=== PATIENT | female | born 1955 | race Caucasian/White ===

== ENCOUNTER → 2017-10-13 | Outpatient (CLI) | payer MEDICARE, OTHER ==
[~2017-10-13] MED LIST: ABAT250V; ALEVE PM CAPLE1 EACH PO; Azor 5-40 MG T1 EACH; COMBIVENT RESPIM4 GM INH; CYAN1000 PO; DULO30 PO; ESTR2; HYDACE7.5; Hydrocodone Bt1 EACH PO; MOMENI; OXYACE5T PO; PANT40 PO; RABE20; VALS80 PO; ZOLP12.5
[2017-10-13 16:31] LABS: BASOPHILS ABSOLUTE AUTO 0.04 K/mm3 (0.00-0.23); BASOPHILS PERCENT AUTO 0 % (0-2); EOSINOPHILS ABSOLUTE AUTO 0.01 K/mm3 (0.00-0.68); EOSINOPHILS PERCENT AUTO 0 % (0-6); Hematocrit 43.4 % (33.0-51.0); Hemoglobin 14.9 g/dL (11.5-16.0); IMMATURE GRAN ABSOLUTE AUTO 0.04 K/mm3 (0.00-0.10); IMMATURE GRAN PERCENT AUTO 0 % (0-1); LYMPHOCYTES ABSOLUTE AUTO 0.74 K/mm3 (0.84-5.20); LYMPHOCYTES PERCENT AUTO 8 % (21-46); MONOCYTES ABSOLUTE AUTO 0.29 K/mm3 (0.16-1.47); MONOCYTES PERCENT AUTO 3 % (4-13); Mean Corpuscular HGB 33.6 pg (26.0-34.0); Mean Corpuscular HGB Conc 34.3 g/dL (31.5-36.5); Mean Corpuscular Volume 98 fL (80-100); Mean Platelet Volume 10.6 fL (9.1-12.4); NEUTROPHILS ABSOLUTE AUTO 8.36 K/mm3 (1.96-9.15); NEUTROPHILS PERCENT AUTO 88 % (41-73); Platelet Count 199 K/mm3 (150-400); RDW Coefficient Variation 12.5 % (11.7-14.2); RDW Standard Deviation 44.7 fL (35.1-46.3); Red Blood Cell Count 4.44 M/mm3 (3.80-5.20); White Blood Cell Count 9.48 K/mm3 (4.00-11.30)
[2017-10-13 16:48] LABS: Albumin/Globulin Ratio 0.8 (0.8-1.8); Bilirubin, Total 0.4 mg/dL (0.1-1.0); Bun/Creatinine Ratio 9.7 (12.0-20.0); Calcium, Blood 9.2 mg/dL (8.5-10.1); Creatinine, Blood 1.45 mg/dL (0.40-1.00); Globulin, Blood 5.2 g/dL (2.2-4.0); Potassium, Blood 3.8 mmol/L (3.5-5.5); Total Protein, Blood 9.2 g/dL (6.4-8.2)
== END | disposition home or self-care (01) ==
LOC: LAB EV 16:28
PROVIDERS: Physician Assistant
DX: R50.9 Fever, unspecified (principal)
CPT/HCPCS: 80053; 85025

== ENCOUNTER 2018-02-04 09:44 | Day surgery (SDC) | payer MEDICARE, OTHER ==
[~2018-02-04] VITALS: Ht 167.6 cm; Wt 84.3 kg
[~2018-02-04 09:44] MED LIST changes: -Azor 5-40 MG T1 EACH
[2018-02-04] MEDS ORDERED: Azor 5-40 MG T1 EACH (10:24)
== END 2018-02-04 11:28 | disposition home or self-care (01) ==
LOC: ORSCSDS 09:44
PROVIDERS: Internal Medicine Gastroenterology
PROC: 0DB98ZX Excision of Duodenum, Via Natural or Artificial Opening Endoscopic, Diagnostic (ICD-10-PCS; principal; 2018-02-04 11:00)
PROC: 0DB68ZX Excision of Stomach, Via Natural or Artificial Opening Endoscopic, Diagnostic (ICD-10-PCS; principal; 2018-02-04 11:00)
DX: K21.9 Gastro-esophageal reflux disease without esophagitis (principal); K29.80 Duodenitis without bleeding; R73.9 Hyperglycemia, unspecified; I10 Essential (primary) hypertension; R19.7 Diarrhea, unspecified; Z87.891 Personal history of nicotine dependence; Z79.899 Other long term (current) drug therapy
CPT/HCPCS: 88305; 88342; J7120

== ENCOUNTER → 2021-04-18 | Outpatient (CLI) | payer MEDICARE, OTHER ==
[~2021-04-18] MED LIST changes: +Azor 5-40 MG T1 EACH
== END | disposition home or self-care (01) ==
LOC: LAB SHORT 13:55 → LAB 13:55
DX: N39.0 Urinary tract infection, site not specified (principal)
CPT/HCPCS: 87086

== ENCOUNTER 2022-11-16 10:23 | Inpatient (IN) | payer MEDICARE, OTHER ==
[~2022-11-16] VITALS: Ht 167.6 cm; Wt 99.5 kg
[~2022-11-16 10:23] MED LIST changes: +AMLODIPINE BESYL5 MG PO; -Azor 5-40 MG T1 EACH
[2022-11-16 11:15] LABS: BASOPHILS ABSOLUTE AUTO 0.04 K/mm3 (0.00-0.23); BASOPHILS PERCENT AUTO 1 % (0-2); EOSINOPHILS ABSOLUTE AUTO 0.09 K/mm3 (0.00-0.68); EOSINOPHILS PERCENT AUTO 1 % (0-6); Hematocrit 39.3 % (33.0-51.0); Hemoglobin 13.3 g/dL (11.5-16.0); IMMATURE GRAN ABSOLUTE AUTO 0.01 K/mm3 (0.00-0.10); IMMATURE GRAN PERCENT AUTO 0 % (0-1); LYMPHOCYTES ABSOLUTE AUTO 1.18 K/mm3 (0.84-5.20); LYMPHOCYTES PERCENT AUTO 19 % (21-46); MONOCYTES ABSOLUTE AUTO 0.52 K/mm3 (0.16-1.47); MONOCYTES PERCENT AUTO 8 % (4-13); Mean Corpuscular HGB 31.6 pg (26.0-34.0); Mean Corpuscular HGB Conc 33.8 g/dL (31.5-36.5); Mean Corpuscular Volume 93 fL (80-100); Mean Platelet Volume 11.5 fL (9.1-12.4); NEUTROPHILS ABSOLUTE AUTO 4.42 K/mm3 (1.96-9.15); NEUTROPHILS PERCENT AUTO 71 % (41-73); Platelet Count 199 K/mm3 (150-400); RDW Coefficient Variation 12.5 % (11.7-14.2); RDW Standard Deviation 42.7 fL (35.1-46.3); Red Blood Cell Count 4.21 M/mm3 (3.80-5.20); White Blood Cell Count 6.26 K/mm3 (4.00-11.30)
[2022-11-16 11:34] LABS: Albumin, Blood 3.6 g/dL (3.4-5.0); Albumin/Globulin Ratio 0.8 (0.8-1.8); Bilirubin, Total 0.3 mg/dL (0.1-1.0); Bun/Creatinine Ratio 19.2 (12.0-20.0); Calcium, Blood 9.4 mg/dL (8.5-10.1); Creatinine, Blood 0.94 mg/dL (0.40-1.00); Globulin, Blood 4.3 g/dL (2.2-4.0); Potassium, Blood 3.7 mmol/L (3.5-5.5); Total Protein, Blood 7.9 g/dL (6.4-8.2)
[2022-11-16] MEDS ORDERED: PANT40 PO (12:18)
[2022-11-16] MEDS ORDERED: Benicar40 MG PO (12:19)
[2022-11-16 17:16] LABS: Anti-Xa UFH, PHA Monitoring <0.10 IU/mL; International Normalized Ratio 1.02; Prothrombin Time Results 10.7 Sec (9.7-11.5)
[2022-11-16 21:10] VITALS: BP 169/92
[2022-11-16 23:37] VITALS: BP 147/73
[2022-11-17] VITALS (15 sets, daily range): BP systolic 121–150; BP diastolic 52–93
[2022-11-17 02:57] LABS: BASOPHILS ABSOLUTE AUTO 0.04 K/mm3 (0.00-0.23); BASOPHILS PERCENT AUTO 1 % (0-2); EOSINOPHILS ABSOLUTE AUTO 0.15 K/mm3 (0.00-0.68); EOSINOPHILS PERCENT AUTO 2 % (0-6); Hematocrit 35.6 % (33.0-51.0); IMMATURE GRAN ABSOLUTE AUTO 0.02 K/mm3 (0.00-0.10); IMMATURE GRAN PERCENT AUTO 0 % (0-1); LYMPHOCYTES ABSOLUTE AUTO 2.82 K/mm3 (0.84-5.20); LYMPHOCYTES PERCENT AUTO 36 % (21-46); MONOCYTES PERCENT AUTO 9 % (4-13); Mean Corpuscular HGB 31.8 pg (26.0-34.0); Mean Corpuscular HGB Conc 33.7 g/dL (31.5-36.5); Mean Corpuscular Volume 94 fL (80-100); Mean Platelet Volume 12.1 fL (9.1-12.4); NEUTROPHILS ABSOLUTE AUTO 4.18 K/mm3 (1.96-9.15); NEUTROPHILS PERCENT AUTO 53 % (41-73); Platelet Count 189 K/mm3 (150-400); RDW Coefficient Variation 12.7 % (11.7-14.2); RDW Standard Deviation 43.8 fL (35.1-46.3); Red Blood Cell Count 3.77 M/mm3 (3.80-5.20); White Blood Cell Count 7.91 K/mm3 (4.00-11.30)
[2022-11-17 03:19] LABS: Albumin, Blood 3.2 g/dL (3.4-5.0); Albumin/Globulin Ratio 0.9 (0.8-1.8); Bilirubin, Total 0.3 mg/dL (0.1-1.0); Bun/Creatinine Ratio 22.2 (12.0-20.0); Calcium, Blood 8.8 mg/dL (8.5-10.1); Creatinine, Blood 0.9 mg/dL (0.40-1.00); Globulin, Blood 3.6 g/dL (2.2-4.0); Magnesium, Blood 1.9 mg/dL (1.6-2.4); Potassium, Blood 3.9 mmol/L (3.5-5.5); Total Protein, Blood 6.8 g/dL (6.4-8.2)
--- NOTE | 2022-11-17 06:03 | NUR ---
SHIFT SUMMARY ASSUMED CARE OF PT AT 213. PT IS A/OX4. HEART SOUNDS REGULAR. LUNG SOUNDS HAVE FINE CRACKLES AT BASES. PT DENIED CP OR SOB. PT INDEPENDENT TO BATHROOM. NO ACUTE EVENTS. PT NPO SINCE MIDNIGHT PER PATIENT INFORMATION COORDINATOR ELOISA. STATES LAST AM HE WILL BE IN TO SEE PT THIS AM.
--- NOTE | 2022-11-17 11:35 | NUR ---
TO HEART CENTER VIA BED. AT BEDSIDE
--- NOTE | 2022-11-17 12:50 | NUR ---
1240 RETURNED TO ROOM VIA BED. AWAKE, ALERT. PT DENIES ANY PAIN OR SOB. RIGHT WRIST TR BAND IN PLACE AND INFLATED TO RIGHT WRIST. NO PAIN BLEEDING BRUISING OR SWELLING
--- NOTE | 2022-11-17 15:49 | NUR ---
1540 2 ML RELEASED FROM TR BAND BY MELITON YOU RN. NO PAIN, BLEEDING OR BRUISING AT RIGHT RADIAL SITE. FINGERS WARM, PINK
[2022-11-17 17:10] LABS: Free Thyroxine 1.52 ng/dL (0.70-1.60)
[2022-11-17 17:13] LABS: Triiodothyronine, Free 3.54 pg/mL (2.18-3.98)
--- NOTE | 2022-11-17 17:52 | NUR ---
AIR REMOVED FROM TR BAND AND BAND IN PLACE TO RIGHT RADIAL SITE. NO PAIN, BLEEDING OR BRUISING. RIGHT HAND PINK, WARM DENIES NUMBNESS OR TINGLING. PT HAS DENIED ANY PAIN OR SOB . REMAINS IN SR. PT ANTICIPATES DISCHARGE TO HOME IN AM
[2022-11-18 03:56] VITALS: BP 130/65
[2022-11-18 04:46] LABS: BASOPHILS ABSOLUTE AUTO 0.03 K/mm3 (0.00-0.23); BASOPHILS PERCENT AUTO 1 % (0-2); EOSINOPHILS ABSOLUTE AUTO 0.15 K/mm3 (0.00-0.68); EOSINOPHILS PERCENT AUTO 2 % (0-6); Hematocrit 38.6 % (33.0-51.0); Hemoglobin 12.7 g/dL (11.5-16.0); IMMATURE GRAN ABSOLUTE AUTO 0.01 K/mm3 (0.00-0.10); IMMATURE GRAN PERCENT AUTO 0 % (0-1); LYMPHOCYTES ABSOLUTE AUTO 2.03 K/mm3 (0.84-5.20); LYMPHOCYTES PERCENT AUTO 32 % (21-46); MONOCYTES ABSOLUTE AUTO 0.64 K/mm3 (0.16-1.47); MONOCYTES PERCENT AUTO 10 % (4-13); Mean Corpuscular HGB 31.5 pg (26.0-34.0); Mean Corpuscular HGB Conc 32.9 g/dL (31.5-36.5); Mean Corpuscular Volume 96 fL (80-100); Mean Platelet Volume 11.5 fL (9.1-12.4); NEUTROPHILS ABSOLUTE AUTO 3.58 K/mm3 (1.96-9.15); NEUTROPHILS PERCENT AUTO 56 % (41-73); Platelet Count 204 K/mm3 (150-400); RDW Coefficient Variation 12.6 % (11.7-14.2); RDW Standard Deviation 44.1 fL (35.1-46.3); Red Blood Cell Count 4.03 M/mm3 (3.80-5.20); White Blood Cell Count 6.44 K/mm3 (4.00-11.30)
[2022-11-18 05:00] LABS: Anion Gap 3 mmol/L (6-16); Blood Urea Nitrogen 17 mg/dL (8-24); Bun/Creatinine Ratio 19.6 (12.0-20.0); CO2, Blood 27 mmol/L (21-32); Calcium, Blood 8.8 mg/dL (8.5-10.1); Chloride, Blood 111 mmol/L (98-108); Cholesterol 165 mg/dL (50-200); Creatinine, Blood 0.87 mg/dL (0.40-1.00); Glomerular Filtration Rate 74 (60-); Glucose, Blood 103 mg/dL (70-99); HDL Cholesterol 33 mg/dL (>39); LDL/HDL RATIO 3.1; Low Density Lipoprotein Chol 102 mg/dL (0-110); Potassium, Blood 4.1 mmol/L (3.5-5.5); Sodium, Blood 141 mmol/L (136-145); Triglycerides 151 mg/dL (30-160); Very Low Density Lipoprot Chol 30 mg/dL (6-32)
--- NOTE | 2022-11-18 05:14 | NUR ---
SHIFT SUMMARY PT IS ALERT AND ORIENTED X 4. SPO2 97% VIA ROOM AIR, SHE HAS DENIED FEELING SOB. HR AND BP STABLE, PT HAS DENIED FEELINGS OF CHEST PAIN/PRESSURE. R RADIAL ANGIO ACCESS SITE IS COVERED W/ TRANSPARENT DRESSING AND IS FREE FROM BLEEDING/HEMATOMA, RADIAL PULSES ARE STRONG. IV'S IN R ARM ARE SALINE LOCKED. PT HAS BEEN INDEPENDENT TO BATHROOM TO VOID AND CAN SHIFT POSITION IN BED INDEPENDENTLY. NO ACUTE CHANGES NOTED. WILL CONTINUE TO MONITOR AND REPORT TO ONCOMING RN. CALL LIGTH IS W/IN REACH.
[2022-11-18 07:33] VITALS: BP 146/77
--- NOTE | 2022-11-18 07:36 | NUR ---
AM NOTE Pt alert, oriented X4, calm and cooperative with care. Pt up ind in room. Right radial site, no bleeding, bruising or hematoma noted. Pt denies pain, chest pain/pressure, sob, nausea, dizziness and numb/tingling. Spo2 >95% on ra, breathing even and unlabored. Tele sinus in 70's, bp elevated but stable. Abd soft nontender, + BT X4 quad, pt reprots last bm this am. Other VSS. No other acute changes noted. Will continue to monitor.
[2022-11-18] MEDS ORDERED: ASPI81CH PO (14:09)
[2022-11-18] MEDS ORDERED: ATOR80 PO (14:10)
[2022-11-18] MEDS ORDERED: CLOP75 PO (14:10)
[2022-11-18] MEDS ORDERED: METO25 PO (14:11)
[2022-11-18] MEDS ORDERED: METHIMAZOLE5 M1 PO (14:11)
--- NOTE | 2022-11-18 18:35 | NUR ---
DISCHARGE SUMMARY Pt reporting heart burn after breakfast, notified Dr Eaton, administered tums per orders with postiive relief. No other acute changes noted. Educdated pt on discharge instructions, follow up appointment and medications. Educated pt on hyperthyroidism, NSTEMI and right radial recovery. Pt left room on foot at 1457.
== END 2022-11-18 14:50 | disposition home or self-care (01) | DRG 282 ==
LOC: ER 10:23 → MEDS 16:15 → PCU 16:15 → MEDS 20:29 → PCU 21:10
PROVIDERS: Emergency Medicine; Family Medicine; Hospitalist; ADMIT Student in an Organized Health Care Education/Training Program
PROC: 4A023N7 Measurement of Cardiac Sampling and Pressure, Left Heart, Percutaneous Approach (ICD-10-PCS; principal; 2022-11-17)
PROC: B211YZZ Fluoroscopy of Multiple Coronary Arteries using Other Contrast (ICD-10-PCS; 2022-11-17)
PROC: B215YZZ Fluoroscopy of Left Heart using Other Contrast (ICD-10-PCS; 2022-11-17)
PROC: B24BZZ3 Ultrasonography of Heart with Aorta, Intravascular (ICD-10-PCS; 2022-11-17)
DX: I21.4 Non-ST elevation (NSTEMI) myocardial infarction (principal); E05.80 Other thyrotoxicosis without thyrotoxic crisis or storm; I25.10 Atherosclerotic heart disease of native coronary artery without angina pectoris; I10 Essential (primary) hypertension; Z90.49 Acquired absence of other specified parts of digestive tract; Z87.891 Personal history of nicotine dependence; Z90.710 Acquired absence of both cervix and uterus; Z79.51 Long term (current) use of inhaled steroids; Z79.899 Other long term (current) drug therapy
CPT/HCPCS: 36415; 71046; 71260; 76536; 76937; 80048; 80053; 80061; 83036; 83735; 83880; 84439; 84443; 84481; 84484; 85025; 85379; 85520; 85610; 93005; 93010; 93306; 93458; 96374-59; 96376; 96376-59; 99152; 99153; 99285-25; A9270; C1769; C1887; C1894; G0378; J1644; J2250; J3010; J7030; J7050; Q9967

== ENCOUNTER 2025-03-04 06:27 | Day surgery (SDC) | payer MEDICARE, OTHER ==
[~2025-03-04] VITALS: Ht 167.6 cm; Wt 80.4 kg
[~2025-03-04 06:27] MED LIST changes: +ASPI81CH PO; +ATOR80 PO; +Benicar40 MG PO; +CLOP75 PO; +METHIMAZOLE5 M1 PO; +METO25 PO
[2025-03-04] MEDS ORDERED: OLMESARTAN-HCT1 EAC4 (07:00)
[2025-03-04] MEDS ORDERED: ROSUVASTATIN CA40 MG (07:00)
[2025-03-04] MEDS ORDERED: Ondansetron HCl 2 MG / ML 2ML Vial ONE (08:59)
[2025-03-04 09:17] VITALS: BP 118/62
== END 2025-03-04 09:29 | disposition home or self-care (01) ==
LOC: ORSCSDS 06:27
PROVIDERS: Internal Medicine Gastroenterology
PROC: 0DBN8ZX Excision of Sigmoid Colon, Via Natural or Artificial Opening Endoscopic, Diagnostic (ICD-10-PCS; principal; 2025-03-04 08:00)
PROC: 0DBL8ZX Excision of Transverse Colon, Via Natural or Artificial Opening Endoscopic, Diagnostic (ICD-10-PCS; principal; 2025-03-04 08:00)
PROC: 0DBH8ZX Excision of Cecum, Via Natural or Artificial Opening Endoscopic, Diagnostic (ICD-10-PCS; principal; 2025-03-04 08:00)
DX: Z12.11 Encounter for screening for malignant neoplasm of colon (principal); Z86.0101 Personal history of adenomatous and serrated colon polyps; D12.3 Benign neoplasm of transverse colon; D12.0 Benign neoplasm of cecum; K63.5 Polyp of colon; B18.2 Chronic viral hepatitis C; M79.7 Fibromyalgia; F32.A Depression, unspecified; Z79.02 Long term (current) use of antithrombotics/antiplatelets; I25.2 Old myocardial infarction; Z79.899 Other long term (current) drug therapy
CPT/HCPCS: 88305; J2405; J2704; J7120

== ENCOUNTER 2025-06-01 11:31 | Day surgery (SDC) | payer MEDICARE, OTHER ==
[~2025-06-01] VITALS: Ht 167.6 cm; Wt 79.7 kg
[~2025-06-01 11:31] MED LIST changes: +Balanced Salt Epinephrine Irrigation Solution 500 mL IR SCH; +Moxifloxacin HCL 0.5 MG/0.1 ML 0.4MLSYR LEFTEYE SCH; +OLMESARTAN-HCT1 EAC4; +Ondansetron 4 MG SoluTab MM PRN; +PHENYLEPHRINE\\TROPICAMIDE\\TETRACAINE OPHTHALMIC DILATING SOLN LEFTEYE PRN; +Povidone-Iodine 450 DROP/30 ML Solution LEFTEYE SCH; +Povidone-Iodine 450 DROP/30 ML Solution ONE; +ROSUVASTATIN CA40 MG; +Tetracaine HCl/Pf 0.5% Opth Soln 4 ml ONE
--- NOTE | 2025-06-01 12:14 | NUR ---
06/01/25 1214 Lolly Lopez 1154: 10 MG PO VALIUM GIVEN PER ORDERS. PULSE OXIMETER ON FINGER, CALL LIGHT IN HAND. INITIAL ANXIETY 0/10 PER PATIENT REPORT.
--- NOTE | 2025-06-01 12:28 | NUR ---
06/01/25 1228 Katia Ramsay VITALS AT 1226 BP: 115/61 P: 70 O2: 95% WITH 10 LITERS OF BLOW BY OXYGEN
[2025-06-01 12:43] VITALS: BP 121/77
== END 2025-06-01 13:03 | disposition home or self-care (01) ==
LOC: ORSCSDS 11:31
PROVIDERS: Student in an Organized Health Care Education/Training Program
PROC: 08RK3JZ Replacement of Left Lens with Synthetic Substitute, Percutaneous Approach (ICD-10-PCS; principal; 2025-06-01 13:00)
DX: H25.812 Combined forms of age-related cataract, left eye (principal); Z96.1 Presence of intraocular lens; I10 Essential (primary) hypertension; E05.00 Thyrotoxicosis with diffuse goiter without thyrotoxic crisis or storm; Z86.19 Personal history of other infectious and parasitic diseases; Z79.899 Other long term (current) drug therapy
CPT/HCPCS: A9270; V2632